=== PATIENT | male | born 2005 | race Caucasian/White ===

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

== ENCOUNTER 2024-07-11 16:01 | Emergency (ER) | payer OTHER, SELFPAY ==
[2024-07-11 16:15] VITALS: BP 124/83; PULSE 72; RESP 18; TEMP 36.8; O2SAT 98; BMI 25.8
--- NOTE | 2024-07-11 16:32 | EXP.UTC ---
Discharge Plan Disposition Patient Disposition: Home, Self-Care Condition: Good Referrals Follow up/Referrals: Angel Ring MD [Primary Care Provider] - See instructions Activity Restrictions/Add. Instructions Additional Instructions/Restrictions: He can continue to ice for the next 24 hours and then ice and heat whichever feels best. Return to the emergency department for worsening signs or symptoms including expanding bleeding. I have marked the borders of your hematoma. Clinical Impressions Clinical Impression: Hematoma Instructions Patient Instructions: DI for Hematoma (Bruise) Print Language Print Language: Upper Sorbian Discharge ED Provider: Mack Phoenix [facility] HPI General Chief complaint: PAIN Stated complaint: AO 07/10/240 Right hip injury Time Seen by Provider: 07/11/24 16:33 History of Present Illness Provider Complaint: Patient states that he was riding a bull last night and he was thrown off, landed on his left side and the bull came down and stepped on his right side states that initially the place started out small and he had some pain in his right hip/side area but since last night the bruising and swelling has progressively got worse States it is very sore in his side and the bruising is worse Related Data Allergies Allergy/AdvReac Type Severity Reaction Status Date / Time amoxicillin [AMOXICILLIN] Allergy Mild Verified 03/31/23 09:[address] [facility] Disclaimer: The information contained in this section may have been updated after the patient was seen, as this information can be updated by other users. Medical History Asthma Migraine Social History Smoking Status: Never smoker alcohol intake: never current occupational status: student and other Travel in the last 8 weeks: None household members: family housing: house ROS Obtained: Yes All systems reviewed & no additional complaints except as documented and Yes Systems reviewed as appropriate & no additional complaints except as documented Constitutional Constitutional: Reports system reviewed and no additional complaints, except as documented and Reports as per HPI Cardiovascular Cardiovascular: Reports system reviewed and no additional complaints, except as documented and Reports as per HPI Respiratory Respiratory: Reports system reviewed and no additional complaints, except as documented and Reports as per HPI Musculoskeletal Musculoskeletal: Reports system reviewed and no additional complaints, except as documented and Reports as per HPI Comments: area on right side/hip area where bull stomped on his after after falling off bull last night Physical Exam General General appearance: alert and in no apparent distress Respiratory Respiratory exam: Present normal lung sounds bilaterally; Absent respiratory distress or wheezes Cardiovascular Cardiovascular exam: Present regular rate, normal rhythm and normal heart sounds Abdominal Exam Comment: large hematoma noted on right side just above right iliac crest Expanded Lower Extremity Exam Right: Hip/Pelvis exam: Present other (large hematoma noted just above right iliac crest, reports got larger since last night and tender to touch) Upper leg exam: Present normal inspection Knee exam: Present normal inspection Lower leg exam: Present normal inspection Foot/toe exam: Present normal inspection Neurovascular/Tendon exam: Present normal capillary refill Gait: observed and normal Comment: patient has been ambulatory since Neurological Exam Neurological exam: Present alert, oriented X3 and normal gait Medical Decision Making Brett Inquiry Pt receiving controlled substance: No Brett was queried for this patient: No Lab Data 07/11/24 16:45 07/11/24 16:45 Medical Decision Narrative: Patient states he was thrown from bull last night and landed on his left side and the bull came down and stepped on his right side just above his hip area States he initially had pain in his hip but that has eased up some but has large hematoma on his right side just above his iliac crest that has continued to get worse and is uncomfortable so he came in, considering location of hematoma and mechanism of injury will transfer to the ED for further work up and evaluation and patient agreed Patient moved to room 10
--- NOTE | 2024-07-11 16:34 | PC.NURSE ---
PATIENT SENT TO ER PER Lois FARRAR APRN FOR FURTHER EVALUATION. REPORT GIVEN TO DR. ALDRIDEG BY Lois FARRAR APRN. PATIENT AMBULATED TO ER WITH [facility] STAFF ASSIST AT THIS TIME
[2024-07-11 16:39] VITALS: BP 157/97; PULSE 74; O2SAT 99
[2024-07-11 16:40] VITALS: BP 157/97; PULSE 73; RESP 20; TEMP 36.8; O2SAT 100; BMI 25.1
--- NOTE | 2024-07-11 16:44 | HMH.EDGENADL ---
Discharge Plan Disposition Patient Disposition: Home, Self-Care Condition: Good Referrals Follow up/Referrals: Angel Ring MD [Primary Care Provider] - See instructions Activity Restrictions/Add. Instructions Additional Instructions/Restrictions: He can continue to ice for the next 24 hours and then ice and heat whichever feels best. Return to the emergency department for worsening signs or symptoms including expanding bleeding. I have marked the borders of your hematoma. Clinical Impressions Clinical Impression: Hematoma Instructions Patient Instructions: DI for Hematoma (Bruise) Print Language Print Language: Czech Discharge ED Provider: Mack Phoenix General Adult HPI <UNA Gill - Last Filed: 07/11/24 19:28> General Chief complaint: PAIN Stated complaint: AO 07/10/24 2230 Right hip injury Time Seen by Provider: 07/11/24 16:33 Mode of Arrival: Ambulatory Source of Information: Patient Limitations: No Limitations Description of Symptoms (Recalled from ER Triage Doc. by RN): PATIENT STATES HE WAS BULL RIDING LAST NIGHT AND FEEL OFF OF THE BULL. HE REPORTS FALLING ONTO HIS LEFT SIDE AND THE BULL STEPPED ON HIS RIGHT HIP AREA. HE STATES THE BRUISING STARTED OUT SMALL AND HAS GOTTEN BIGGER EACH HOUR. SWELLING AND LARGE BRUISED AREA NOTED TO RIGHT SIDE/HIP AREA. History of Present Illness HPI narrative: Patient presents for evaluation to a hematoma of his right flank. 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 It is below the anterior superior iliac spine. However due to his area has significantly darkened and expanded since the accident about 1030 last night. He denies pain anywhere else including neck back chest belly. Related Data Allergies Allergy/AdvReac Type Severity Reaction Status Date / Time amoxicillin [AMOXICILLIN] Allergy Mild Verified 03/31/23 09:23 [facility] <UNA Gill - Last Filed: 07/11/24 19:28> [facility] Disclaimer: The information contained in this section may have been updated after the patient was seen, as this information can be updated by other users. Medical History Asthma Migraine Social History Smoking Status: Never smoker alcohol intake: never current occupational status: student and other Travel in the last 8 weeks: None household members: family housing: house <UNA Gill - Last Filed: 07/11/24 19:28> ROS Obtained: Yes Systems reviewed as appropriate & no additional complaints except as documented Physical Exam <UNA Gill - Last Filed: 07/11/24 19:28> General General appearance: alert and in no apparent distress Respiratory Respiratory exam: Present normal lung sounds bilaterally Cardiovascular Cardiovascular exam: Present regular rate and normal rhythm Abdominal Exam Abdominal exam: Present soft, guarding, rebound and normal bowel sounds; Absent tenderness Extremities Exam Extremities exam: Present normal inspection and full ROM Back Exam Back exam: Present normal inspection and full ROM Neurological Exam Neurological exam: Present alert and oriented X3 Expanded Skin Exam Body image: 1. 2. Numbers 1 and 2 are the same contiguous area of ecchymosis in the right flank Medical Decision Making <UNA Gill - Last Filed: 07/11/24 19:28> Brett Inquiry Pt receiving controlled substance: No Vital Signs: 07/11/24 16:15 07/11/24 16:39 07/11/24 16:40 Temperature 98.2 F 98.2 F Temperature Source Oral Oral Pulse Rate 74 Pulse Rate [Left Brachial] 72 73 Respiratory Rate 18 20 Blood Pressure 157/97 H Blood Pressure [Left Arm] 124/83 157/97 H Blood Pressure Mean Blood Pressure Mean [Left Arm] 96 117 Blood Pressure Source [Left Arm] Automatic Cuff Blood Pressure Position [Left Arm] Sitting 02 Sat by Pulse Oximetry 98 99 100 Oxygen Delivery Method Room Air 07/11/24 18:07 07/11/24 18:30 07/11/24 19:31 Temperature 97.9 F Temperature Source Oral Pulse Rate 60 66 Pulse Rate [Left Brachial] Respiratory Rate 16 Blood Pressure 119/81 123/79 130/78 Blood Pressure [Left Arm] Blood Pressure Mean 90 Blood Pressure Mean [Left Arm] Blood Pressure Source [Left Arm] Blood Pressure Position [Left Arm] 02 Sat by Pulse Oximetry 100 Oxygen Delivery Method Room Air Room Air Lab Data Lab Results 07/11/24 16:45: WBC 6.6, RBC 4.91, Hgb 14.4, Hct 44.6, MCV 90.9, MCH 29.4, MCHC 32.3, RDW 13.7, Plt Count 233, MPV 7.9, Neut % (Auto) 59.3, Lymph % (Auto) 28.3, [place]in[place] % (Auto) 9.0, Eos % (Auto) 2.5, Baso % (Auto) 1.0, Neut # (Auto) 3.9, Lymph # (Auto) 1.9, [place]in[place] # (Auto) 0.6, Eos # (Auto) 0.2, Baso # (Auto) 0.1, PT 11.0, INR 0.98, APTT 27.3, Sodium 141, Potassium 3.8, Chloride 106, Carbon Dioxide 28, Anion Gap 10.8, BUN 16, Creatinine 0.90, Estimated Creat Clear 152, Estimated GFR 109, Est GFR ( Amer) 132, Glucose 81, Calcium 9.0, Total Bilirubin 1.3, AST 35, ALT 32, Alkaline Phosphatase 112, Total Protein 7.9, Albumin 4.7, Globulin 3.2, Albumin/Globulin Ratio 1.5 07/11/24 16:45 07/11/24 16:45 Orders (Tests/Meds): ED MEDICATIONS Discontinued Medications Generic Name Dose Route Start Last Admin Trade Name Freq PRN Reason Stop Dose Admin Acetaminophen 1,000 mg 07/11/24 16:49 07/11/24 16:57 Acetaminophen 1,000mg/100ml Vial IV 07/11/24 16:50 1,000 mg ONCE ONE Administration Lactated Ringer's 1,000 mls @ 999 mls/hr 07/11/24 16:49 07/11/24 16:57 Lactated Ringer's 1000 Ml Bag IV 07/11/24 17:49 999 mls/hr .Q1H1M ONE Administration Iopamidol 80 ml 07/11/24 17:58 07/11/24 17:58 Iopamidol-370 (76%);100ml Bottle IV 07/11/24 17:59 80 ml ONCE ONE Administration Sodium Chloride 50 ml 07/11/24 17:58 07/11/24 17:58 0.9 % Sodium Chloride 50 Ml Vial IV 07/11/24 17:59 50 ml ONCE ONE Administration Sodium Chloride 10 ml 07/11/24 17:58 Sodium Chloride 0.9% 10ml Syr (Rad Only) IV 08/10/24 17:57 NEEDED PRN Maintain IV Site ORDERS Category Date Time Status CT angio abdomen pelvis Stat Cat Scan 07/11/24 16:49 Completed CBC w/Auto Diff [Complete Blood Count Auto Diff] Stat Lab 07/11/24 16:45 Completed CMP [Comprehensive Metabolic Panel] Stat Lab 07/11/24 16:45 Completed INR [Prothrombin Time INR] Stat Lab 07/11/24 16:45 Completed PTT [Activated Partial Thrombo Time] Stat Lab 07/11/24 16:45 Completed Medical Decision Narrative: In summary patient is a 18-year-old male who presents to the emergency department for evaluation of being stepped on by a bull with a hematoma in the right flank. Patient is hemodynamically stable upon arrival, afebrile. Physical exam shows a large ecchymotic area in the right flank. It actually stops at the level of his pants/waist. It is approximately 20 cm anterior posterior and about 12 cm superior-inferior. No bony deformities palpated and patient actually is only mildly uncomfortable to palpation. Differential diagnosis includes hematoma versus arterial bleed versus possible fracture. Initial workup will be conducted with hematologic labs CT scan abdomen pelvis. Initial interventions include Tylenol for now and fluid bolus. Initial workup reviewed by me is reassuring is his hematologic labs are nonactionable and my informal interpretation of his CT scan abdomen pelvis shows what appears to be a hematoma that has origins at the musculature of the right hip but no definitive extravasation of contrast is seen. Upon repeat evaluation patient's hematoma has not expanded beyond the boundaries that I marked on arrival with a permanent marker. Given this I had an interactive discussion with the patient regarding strict return precautions including expanding borders increasing pain at the site rapid increase in size etc. Patient verbalized understanding and agreement. Patient is appropriate for discharge with instructions for rest ice and compression is much as possible to facilitate symptom relief. <Mack Phoenix MD - Last Filed: 07/11/24 20:09> Vital Signs: 07/11/24 16:15 07/11/24 16:39 07/11/24 16:40 Temperature 98.2 F 98.2 F Temperature Source Oral Oral Pulse Rate 74 Pulse Rate [Left Brachial] 72 73 Respiratory Rate 18 20 Blood Pressure 157/97 H Blood Pressure [Left Arm] 124/83 157/97 H Blood Pressure Mean Blood Pressure Mean [Left Arm] 96 117 Blood Pressure Source [Left Arm] Automatic Cuff Blood Pressure Position [Left Arm] Sitting 02 Sat by Pulse Oximetry 98 99 100 Oxygen Delivery Method Room Air 07/11/24 18:07 07/11/24 18:30 07/11/24 19:31 Temperature 97.9 F Temperature Source Oral Pulse Rate 60 66 Pulse Rate [Left Brachial] Respiratory Rate 16 Blood Pressure 119/81 123/79 130/78 Blood Pressure [Left Arm] Blood Pressure Mean 90 Blood Pressure Mean [Left Arm] Blood Pressure Source [Left Arm] Blood Pressure Position [Left Arm] 02 Sat by Pulse Oximetry 100 Oxygen Delivery Method Room Air Room Air Lab Data Lab Results 07/11/24 16:45: WBC 6.6, RBC 4.91, Hgb 14.4, Hct 44.6, MCV 90.9, MCH 29.4, MCHC 32.3, RDW 13.7, Plt Count 233, MPV 7.9, Neut % (Auto) 59.3, Lymph % (Auto) 28.3, [place]in[place] % (Auto) 9.0, Eos % (Auto) 2.5, Baso % (Auto) 1.0, Neut # (Auto) 3.9, Lymph # (Auto) 1.9, [place]in[place] # (Auto) 0.6, Eos # (Auto) 0.2, Baso # (Auto) 0.1, PT 11.0, INR 0.98, APTT 27.3, Sodium 141, Potassium 3.8, Chloride 106, Carbon Dioxide 28, Anion Gap 10.8, BUN 16, Creatinine 0.90, Estimated Creat Clear 152, Estimated GFR 109, Est GFR ( Amer) 132, Glucose 81, Calcium 9.0, Total Bilirubin 1.3, AST 35, ALT 32, Alkaline Phosphatase 112, Total Protein 7.9, Albumin 4.7, Globulin 3.2, Albumin/Globulin Ratio 1.5 Orders (Tests/Meds): ED MEDICATIONS Discontinued Medications Generic Name Dose Route Start Last Admin Trade Name Freq PRN Reason Stop Dose Admin Acetaminophen 1,000 mg 07/11/24 16:49 07/11/24 16:57 Acetaminophen 1,000mg/100ml Vial IV 07/11/24 16:50 1,000 mg ONCE ONE Administration Lactated Ringer's 1,000 mls @ 999 mls/hr 07/11/24 16:49 07/11/24 16:57 Lactated Ringer's 1000 Ml Bag IV 07/11/24 17:49 999 mls/hr .Q1H1M ONE Administration Iopamidol 80 ml 07/11/24 17:58 07/11/24 17:58 Iopamidol-370 (76%);100ml Bottle IV 07/11/24 17:59 80 ml ONCE ONE Administration Sodium Chloride 50 ml 07/11/24 17:58 07/11/24 17:58 0.9 % Sodium Chloride 50 Ml Vial IV 07/11/24 17:59 50 ml ONCE ONE Administration Sodium Chloride 10 ml 07/11/24 17:58 Sodium Chloride 0.9% 10ml Syr (Rad Only) IV 08/10/24 17:57 NEEDED PRN Maintain IV Site ORDERS Category Date Time Status CT angio abdomen pelvis Stat Cat Scan 07/11/24 16:49 Completed CBC w/Auto Diff [Complete Blood Count Auto Diff] Stat Lab 07/11/24 16:45 Completed CMP [Comprehensive Metabolic Panel] Stat Lab 07/11/24 16:45 Completed INR [Prothrombin Time INR] Stat Lab 07/11/24 16:45 Completed PTT [Activated Partial Thrombo Time] Stat Lab 07/11/24 16:45 Completed Medical Decision Narrative: In summary patient is a 18-year-old male who presents to the emergency department for evaluation of being stepped on by a bull with a hematoma in the right flank. Patient is hemodynamically stable upon arrival, afebrile. Physical exam shows a large ecchymotic area in the right flank. It actually stops at the level of his pants/waist. It is approximately 20 cm anterior posterior and about 12 cm superior-inferior. No bony deformities palpated and patient actually is only mildly uncomfortable to palpation. Differential diagnosis includes hematoma versus arterial bleed versus possible fracture. Initial workup will be conducted with hematologic labs CT scan abdomen pelvis. Initial interventions include Tylenol for now and fluid bolus. Initial workup reviewed by me is reassuring is his hematologic labs are nonactionable and my informal interpretation of his CT scan abdomen pelvis shows what appears to be a hematoma that has origins at the musculature of the right hip but no definitive extravasation of contrast is seen. Upon repeat evaluation patient's hematoma has not expanded beyond the boundaries that I marked on arrival with a permanent marker. Given this I had an interactive discussion with the patient regarding strict return precautions including expanding borders increasing pain at the site rapid increase in size etc. Patient verbalized understanding and agreement. Patient is appropriate for discharge with instructions for rest ice and compression is much as possible to facilitate symptom relief. Alban: I assumed primary responsibility for this patient after signout from previous physician. I independently interviewed and evaluated patient. Right flank hematoma. Moderately tender. No pulsatile bruit, not actively expanding visibly. I was consulted by the FRANCO, and we discussed the complexity of the problems being addressed. I approved the treatment and management plan for this patient's care in the Emergency Department, thus performing a substantive portion of the medical decision making. Mack Phoenix MD Critical Care <UNA Gill - Last Filed: 07/11/24 19:28> Critical Care Time Critical Care Time: No
--- NOTE | 2024-07-11 16:49 | CT_ITS ---
PROCEDURE INFORMATION: Exam: CTA Abdomen and Pelvis With Contrast Exam date and time: 07/11/2024 5:57 PM Age: 18 years old Clinical indication: Abdominal pain; Flank; Other: Right; Additional info: Expanding hematoma right flank, stepped on by a bu TECHNIQUE: Imaging protocol: Computed tomographic angiography of the abdomen and pelvis with contrast. Exam focused on the arteries. 3D rendering (Not supervised by radiologist): MIP and/or 3D reconstructed images were created by the technologist. Radiation optimization: All CT scans at this facility use at least one of these dose optimization techniques: automated exposure control; mA and/or kV adjustment per patient size (includes targeted exams where dose is matched to clinical indication); or iterative reconstruction. Contrast material: ISOVUE; Contrast volume: 80 ml; Contrast route: INTRAVENOUS (IV); COMPARISON: CT ABDOMEN PELVIS W CON 05/19/2020 1:01 AM FINDINGS: Aorta: No aortic aneurysm. No aortic dissection. Celiac trunk and mesenteric arteries: No occlusion or significant stenosis. Renal arteries: No occlusion or significant stenosis. Right iliac arteries: No occlusion or significant stenosis. Left iliac arteries: No occlusion or significant stenosis. Liver: No mass. Gallbladder and biliary ducts: Unremarkable. No calcified stones. No ductal dilation. Pancreas: Unremarkable. No mass. No ductal dilation. Spleen: Unremarkable. No splenomegaly. Adrenal glands: Unremarkable. No mass. Kidneys and ureters: Unremarkable. No solid mass. No hydronephrosis. Stomach and bowel: Unremarkable. No obstruction. No mucosal thickening. Appendix: No evidence of appendicitis. Intraperitoneal space: Unremarkable. No free air. No significant fluid collection. Lymph nodes: Unremarkable. No enlarged lymph nodes. Urinary bladder: Unremarkable. No mass. Reproductive: Unremarkable as visualized. Bones/joints: No acute fracture. Soft tissues: Right flank soft tissue opacities compatible with hematomas that involves the fascia of the gluteus medialis with this component measuring 4.8 x 4.2 x 1.9 cm. Majority of the hematoma is within the subcutaneous fat. IMPRESSION: Right flank soft tissue opacities compatible with hematomas that involves the fascia of the gluteus medialis with this component measuring 4.8 x 4.2 x 1.9 cm. Majority of the hematoma is within the subcutaneous fat.
[2024-07-11] MEDS: ACETAMINOPHEN 1,000MG/100ML VIAL 1000 MG IV (16:57)
[2024-07-11] MEDS: LACTATED RINGERS 1000ML 1,000 ML 999 ML IV (16:57)
[2024-07-11 16:58] LABS: Albumin Level 4.7 g/dl (3.5-5.0); Chloride 106 mmol/L (98-107)
[2024-07-11 16:59] LABS: Potassium 3.8 mmoL/L (3.5-5.1); Sodium 141 mmol/L (136-145)
[2024-07-11 17:01] LABS: Alanine Aminotransferase 32 U/L (12-78); Anion Gap 10.8 mEq/L (5-15); Aspartate Amino Transferase 35 U/L (17-59); Blood Urea Nitrogen 16 mg/dl (9-20); Carbon Dioxide 28 mmol/L (22.0-30.0); Creatinine Clearance Estimated 152 mL/min (50-200); Estimated Glomerular Filt Rate 109 ml/min (>60); GFR (African American) 132 ML/MIN (>60)
[2024-07-11 17:02] LABS: Albumin/Globulin Ratio 1.5 (1.1-1.8); Alkaline Phosphatase 112 U/L (38-126); Bilirubin,Total 1.3 mg/dl (0.2-1.3); Globulin 3.2 g/dL (1.3-3.2); Glucose 81 mg/dl (74-100); Total Protein,Serum 7.9 g/dl (6.3-8.2)
[2024-07-11 17:08] LABS: Activated Partial Thrombo Time 27.3 seconds (22.8-30.6); INR 0.98 (0.9-1.1)
[2024-07-11 17:22] LABS: Basophils # 0.1 K/mm3 (0-0.2); Eosinophils # 0.2 K/mm3 (0.0-0.4); Eosinophils % 2.5 % (0.1-12.0); Hematocrit 44.6 % (42.0-52.0); Hemoglobin 14.4 g/dL (14.1-18.0); Lymphocytes # 1.9 K/mm3 (0.7-4.5); Lymphocytes % 28.3 % (10-50); Mean Corpuscular HGB Conc 32.3 g/dL (31.8-35.4); Mean Corpuscular Hemoglobin 29.4 pg (27.0-31.2); Mean Corpuscular Volume 90.9 fl (80-94); Mean Platelet Volume 7.9 fl (7.4-10.4); Monocytes # 0.6 K/mm3 (0.1-1.0); Neutrophils # 3.9 K/mm3 (1.8-7.8); Neutrophils % 59.3 % (37.0-80.0); Platelet Count 233 K/mm3 (142-424); Red Blood Count 4.91 M/mm3 (4.60-6.20); Red Cell Distribution Width 13.7 % (11.5-17.5); White Blood Count 6.6 K/mm3 (4.5-13.0)
--- NOTE | 2024-07-11 17:54 | PC.NURSE ---
Pt ambulatory to RAD
[2024-07-11] MEDS: IOPAMIDOL-370 (76%);100ML BOTTLE 80 ML IV (17:58)
[2024-07-11] MEDS: 0.9 % SODIUM CHLORIDE 50 ML VIAL IV (17:58)
--- NOTE | 2024-07-11 18:01 | PC.NURSE ---
Pt returned from RAD
[2024-07-11 18:07] VITALS: BP 119/81
[2024-07-11 18:30] VITALS: BP 123/79; PULSE 60; O2SAT 100
[2024-07-11 19:31] VITALS: BP 130/78; PULSE 66; RESP 16; TEMP 36.6; O2SAT 100
== END 2024-07-11 19:36 | disposition home or self-care (01) ==
LOC: UTC 16:03 → ER 16:34
PROVIDERS: Physician Assistant; Emergency Provider Emergency Medicine; PCP Internal Medicine Adolescent Medicine
DX: M25.551 Pain in right hip (principal); S70.01XA Contusion of right hip, initial encounter; R10.31 Right lower quadrant pain; W55.22XA Struck by cow, initial encounter
CPT/HCPCS: 74174; 80053; 85025; 85610; 85730; 96361; 96374; 99284; J0131; J7120; Q9967

== ENCOUNTER 2024-07-11 22:24 | Emergency (ER) | payer OTHER, SELFPAY ==
[2024-07-11 22:26] VITALS: BP 158/92; PULSE 74; RESP 16; TEMP 36.8; O2SAT 100; BMI 25.1
--- NOTE | 2024-07-11 22:35 | ED_ITS ---
Discharge Plan Disposition Patient Disposition: Home, Self-Care Condition: Good Referrals Follow up/Referrals: Angel Ring MD [Primary Care Provider] - See instructions Activity Restrictions/Add. Instructions Additional Instructions/Restrictions: Return to the emergency department for any expansion of the hematoma beyond the borders that are currently marked. Return if the size suddenly increases. Wear Yaya wrap compression and ice. Follow-up with your PCP in 48 hours for recheck. Clinical Impressions Clinical Impression: Subcutaneous hematoma Print Language Print Language: Sierra Leonean Discharge ED Provider: aMck Phoenix General Adult HPI <UNA Gill - Last Filed: 07/11/24 22:49> General Chief complaint: Recheck/Abnormal Lab/Rx Stated complaint: swelling around hip area Time Seen by Provider: 07/11/24 22:35 History of Present Illness HPI narrative: Patient presents for reevaluation of his hematoma. Patient states that he thought it was getting larger outside of the marked borders that I placed on his arrival earlier this date. He also feels like it might be getting larger in size. He has still has no increasing pain. Related Data Allergies Allergy/AdvReac Type Severity Reaction Status Date / Time amoxicillin [AMOXICILLIN] Allergy Mild Verified 03/31/23 09:23 PFSH <UNA Gill - Last Filed: 07/11/24 22:49> [facility]LY [facility] Disclaimer: The information contained in this section may have been updated after the patient was seen, as this information can be updated by other users. Medical History Asthma Migraine Social History Smoking Status: Never smoker alcohol intake: never current occupational status: student and other Travel in the last 8 weeks: None household members: family housing: house <UNA Gill - Last Filed: 07/11/24 22:49> ROS Obtained: Yes Systems reviewed as appropriate & no additional complaints except as documented Physical Exam <UNA Gill - Last Filed: 07/11/24 22:49> General General appearance: alert and in no apparent distress Respiratory Respiratory exam: Present normal lung sounds bilaterally Cardiovascular Cardiovascular exam: Present regular rate and normal rhythm Neurological Exam Neurological exam: Present alert and oriented X3 Medical Decision Making <UNA Gill - Last Filed: 07/11/24 22:49> Medical Records Medical records reviewed: Yes I reviewed the patient's medical records. Brett Inquiry Pt receiving controlled substance: No Vital Signs: 07/11/24 22:26 07/11/24 23:02 07/11/24 23:03 Temperature 98.2 F 98.2 F 98.2 F Temperature Source Oral Oral Pulse Rate 74 Pulse Rate [Right] 74 74 Respiratory Rate 16 20 20 Blood Pressure 138/88 Blood Pressure [Right Arm] 158/92 H 158/92 H Blood Pressure Mean [Right Arm] 114 114 02 Sat by Pulse Oximetry 100 100 Oxygen Delivery Method Room Air Lab Data Lab results reviewed: Yes I reviewed the patient's lab results. Medical Decision Narrative: In summary patient is a 18-year-old male who presents to the emergency department for evaluation of traumatic hematoma. Patient is hemodynamically stable upon arrival, afebrile. Physical exam shows that the area of ecchymosis is still within the borders that marked on his arrival at the previous visit earlier this date. He has some streakiness in in the posterior flank that I did not include in the large border as they were very streaky and minimal in size. Differential diagnosis includes expanding hematoma versus normal sequela of traumatic hematoma. Previous workup showed he was hemodynamically stable with good coagulation and CT scan via my informal to rotation showed subcutaneous fat hematomas and involving the gluteus medialis muscle failure. Patient reiterated turns for strict return and reassured that it is not expanding beyond the borders and there would likely be some more puffiness. However if it expands outside the borders rapidly He is to return to the emergency department immediately. <Mack Phoenix MD - Last Filed: 07/11/24 23:14> Vital Signs: 07/11/24 22:26 07/11/24 23:02 07/11/24 23:03 Temperature 98.2 F 98.2 F 98.2 F Temperature Source Oral Oral Pulse Rate 74 Pulse Rate [Right] 74 74 Respiratory Rate 16 20 20 Blood Pressure 138/88 Blood Pressure [Right Arm] 158/92 H 158/92 H Blood Pressure Mean [Right Arm] 114 114 02 Sat by Pulse Oximetry 100 100 Oxygen Delivery Method Room Air Medical Decision Narrative: In summary patient is a 18-year-old male who presents to the emergency department for evaluation of traumatic hematoma. Patient is hemodynamically stable upon arrival, afebrile. Physical exam shows that the area of ecchymosis is still within the borders that marked on his arrival at the previous visit earlier this date. He has some streakiness in in the posterior flank that I did not include in the large border as they were very streaky and minimal in size. Differential diagnosis includes expanding hematoma versus normal sequela of traumatic hematoma. Previous workup showed he was hemodynamically stable with good coagulation and CT scan via my informal to rotation showed subcutaneous fat hematomas and involving the gluteus medialis muscle failure. Patient reiterated turns for strict return and reassured that it is not expanding beyond the borders and there would likely be some more puffiness. However if it expands outside the borders rapidly He is to return to the emergency department immediately. I was consulted by the FRANCO, and we discussed the complexity of the problems being addressed. I approved the treatment and management plan for this patient's care in the Emergency Department, thus performing a substantive portion of the medical decision making. Mack Phoenix MD Critical Care <UNA Gill - Last Filed: 07/11/24 22:49> Critical Care Time Critical Care Time: No
[2024-07-11 23:02] VITALS: BP 158/92; PULSE 74; RESP 20; TEMP 36.8; O2SAT 100
[2024-07-11 23:03] VITALS: BP 138/88; PULSE 74; RESP 20; TEMP 36.8
== END 2024-07-11 23:04 | disposition home or self-care (01) ==
PROVIDERS: Emergency Provider Emergency Medicine; PCP Internal Medicine Adolescent Medicine
DX: S70.01XA Contusion of right hip, initial encounter; M25.551 Pain in right hip; R10.31 Right lower quadrant pain; W55.22XA Struck by cow, initial encounter
CPT/HCPCS: 99282

== ENCOUNTER 2024-10-14 15:15 | Emergency (ER) | payer OTHER, SELFPAY ==
[2024-10-14 15:45] VITALS: BP 134/79; PULSE 70; RESP 16; TEMP 36.9; O2SAT 99; BMI 25.0
[2024-10-14 15:52] LABS: UTC Strep Screen (Rapid) Negative (Negative)
--- NOTE | 2024-10-14 16:20 | EXP.UTC ---
Discharge Plan Disposition Patient Disposition: Home, Self-Care Condition: Good Prescriptions Prescriptions: New clindamycin HCl 300 mg capsule 300 mg PO Q8H Qty: 30 0RF methylprednisolone 4 mg Tablets,Dose Pack 4 mg PO DIRECTED 6 Days Qty: 21 0RF Rx Instructions: Take 1 pack as directed for 6 days [id number]-[id number]-GX [Bromfed DM] 2-30-10 mg/5 mL Syrup 5 ml PO Q6H PRN (Reason: Cough) Qty: 240 0RF Referrals Follow up/Referrals: Angel Ring MD [Primary Care Provider] - See instructions Activity Restrictions/Add. Instructions Additional Instructions/Restrictions: Drink plenty of fluids. Take tylenol or ibuprofen for pain or fever. Take the medications as directed. Follow up with your regular doctor. GO TO THE ER FOR ANY WORSENING SYMPTOMS Don't start the oral steroids (medrol dose pack) until tomorrow since you had the shot here Clinical Impressions Clinical Impression: Pharyngitis Stand Alone Forms Stand Alone Forms: Work/School Release Instructions Patient Instructions: Sore Throat, DI for Pharyngitis/Tonsillopharyngitis -- Adult, Dexamethasone Injection Print Language Print Language: Jamaican Discharge ED Provider: Speedy Murrieta [facility] General Stated complaint: sore throat,blisters in throat Mode of Arrival: Ambulatory Source of Information: Patient Limitations: No Limitations Time Seen by Provider: 10/14/24 15:54 Description of Symptoms (Recalled from Triage Doc. by RN): PATIENT C/O SORE THROAT AND COUGH X 1 WEEK HEENT Symptoms (Recalled from RN notes): Yes Resp Symptoms (Recalled from RN notes): Yes Skin Symptoms (Recalled from RN notes): No MS Symptoms (Recalled from RN notes): No Functional Status (Recalled from RN notes): WNL Related Data Previous Rx's ?Medication ?Instructions ?Recorded jkhkgokusflvazw-xmrdmdcwspaunxj-SA 5 ml PO Q6H PRN Cough #240 mL 10/14/24 2 mg-30 mg-10 mg/5 mL oral syrup (Bromfed DM) clindamycin HCl 300 mg capsule 300 mg PO Q8H #30 caps 10/14/24 methylprednisolone 4 mg tablets in 4 mg PO DIRECTED 6 days #21 tabs 10/14/24 a dose pack Allergies Allergy/AdvReac Type Severity Reaction Status Date / Time amoxicillin (AMOXICILLIN) Allergy Mild Verified 03/31/23 09:23 Worker's Comp Is this a Worker's Comp case?: No [facility] Disclaimer: The information contained in this section may have been updated after the patient was seen, as this information can be updated by other users. Medical History Asthma Migraine Social History Smoking Status: Never smoker alcohol intake: never current occupational status: student and other household members: family housing: house ROS Obtained: Yes All systems reviewed & no additional complaints except as documented Constitutional Constitutional: Reports chills and Reports fever(s) Eyes Eyes: Denies eye discharge ENT Ears, Nose, Mouth, and Throat: Reports as per HPI Cardiovascular Cardiovascular: Denies chest pain Respiratory Respiratory: Denies chest congestion and Reports cough Gastrointestinal Gastrointestingal: Reports nausea; Denies abdominal pain, constipation, cramping, diarrhea or vomiting Musculoskeletal Musculoskeletal: Denies arthralgias Integumentary/Breasts Skin/Breast: Denies rash Neurologic Neurologic: Denies paresthesias Physical Exam General General appearance: alert and in no apparent distress Head Head exam: atraumatic, normocephalic and normal inspection Eye Eye exam: Present normal appearance, PERRL and EOMI ENT ENT exam: Present mucous membranes moist and normal external ear exam Expanded ENT Exam TM/Canal exam: Bilateral TM: erythema and bulging Nose exam: Absent sinus tenderness Mouth exam: Present normal external inspection; Absent drooling Teeth exam: Present normal inspection Throat exam: Present tonsillar erythema, tonsillomegaly and tonsillar exudate Neck Neck exam: Present normal inspection, full ROM and trachea midline; Absent tenderness, meningismus or lymphadenopathy Chest Chest inspection: Present normal inspection and symmetric chest wall rise; Absent tenderness Respiratory Respiratory exam: Present normal lung sounds bilaterally; Absent respiratory distress, wheezes, stridor or accessory muscle use Cardiovascular Cardiovascular exam: Present regular rate and normal rhythm; Absent systolic murmur or diastolic murmur Abdominal Exam Abdominal exam: Present soft and normal bowel sounds; Absent distention, tenderness, guarding, rebound or rigidity Extremities Exam Extremities exam: Present normal inspection and normal capillary refill; Absent calf tenderness Back Exam Back exam: Present normal inspection and full ROM; Absent tenderness, CVA tenderness (R) or CVA tenderness (L) Neurological Exam Neurological exam: Present alert, oriented X3 and CN II-XII intact Psychiatric Psychiatric exam: Present normal affect and normal mood Skin Skin exam: Present warm, dry, intact and normal color Medical Decision Making Medical Records Medical records reviewed: No I reviewed the patient's medical records. Screening: Per USPSTF and CDC recommendations, given the prevalence of disease in our region, it is our hospital?s policy to screen for HIV and viral Hepatitis for all patients aged 18 and over and those with ongoing risk factors. Brett Inquiry Pt receiving controlled substance: No Vital Signs: 10/14/24 15:45 Temperature 98.4 F Temperature Source Oral Pulse Rate [Left Brachial] 70 Respiratory Rate 16 Blood Pressure [Left Arm] 134/79 Blood Pressure Mean [Left Arm] 97 Blood Pressure Source [Left Arm] Automatic Cuff Blood Pressure Position [Left Arm] Sitting 02 Sat by Pulse Oximetry 99 Oxygen Delivery Method Room Air Lab Data Lab results reviewed: Yes I reviewed the patient's lab results. Lab Results 10/14/24 15:44: Strep Scn Rapid Clinic Negative Orders (Tests/Meds): ORDERS Category Date Time Status Strep Screen Confirmation Stat Micro 10/14/24 15:44 Received
[2024-10-14] MEDS: DEXAMETHASONE 4MG/ML 1ML VIAL 8 MG IM (16:50)
[2024-10-14 17:01] VITALS: BP 134/79; PULSE 70; RESP 16; TEMP 36.9; O2SAT 99
== END 2024-10-14 17:03 | disposition home or self-care (01) ==
PROVIDERS: Emergency Provider Nurse Practitioner Family; PCP Internal Medicine Adolescent Medicine
DX: J02.9 Acute pharyngitis, unspecified (principal)
CPT/HCPCS: 87880; 96372; 99213; G0381; J1100

== ENCOUNTER 2025-06-01 09:18 | Outpatient (CLI) | payer OTHER, SELFPAY ==
--- NOTE | 2025-06-01 09:19 | XR_ITS ---
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 There is no acute fracture or dislocation. Visualized joint spaces are normally aligned. Soft tissues are unremarkable. IMPRESSION: No acute bony abnormality. Reviewed, Interpreted and Dictated by Nima Mendoza MD Transcribed by Maile Giraldo Authenticated and [facility]
--- OUTSIDE RECORDS SUMMARY | 2025-06-01 09:21 | XMS_ITS | Encounter Summary ---
Author Organization [employer] ([place], [place], [place], [place]) Address [address] [place] [address] Care Team Providers Care Respiratory Tech Name Role Phone Unavailable Primary Care Provider Unavailabl e Encounter Details Date Type Department Care Team (Late st Contact Info) Description 06/24/2019 Transcribed Document [facility] [place] Family Medicine [address] [place] [address] ProviderIman MD [address] [place] [address] Social History Tobacco Use Types Packs/Day Years Used Date Smoking Tobacco: Never Assessed Sex and Gender Information Value Date Recorded Sex Assigned at Male 05/21/2022 8:34 PM CDT Legal Sex Male 8:34 PM CDT Gender Identity Male 05/21/2022 8:34 PM CDT Sexual Orientation Not on file documented as of this encounter Miscellaneous Notes * Cerner Conversion Note - Historical ProviderMD - 06/24/2019 12:53 AM CDT documented in this encounter Plan of Treatment Not on file documented as of this encounter Visit Diagnoses Not on filedocumented in this encounter
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
--- OUTSIDE RECORDS SUMMARY | 2025-06-01 09:21 | XMS_ITS | Clinical Summary ---
Author Organization [employer] ([place], [place], [place], [place]) Address [address] [place] [address] Care Team Providers Care Crane Operator Cab Name Role Phone Unavailable Primary Care Provider Unavailabl e Social History Tobacco Use Types Packs/Day Years Used Date Smoking Tobacco: Never Assessed Sex and Gender Information Value Date Recorded Sex Assigned at Male 05/21/2022 8:34 PM CDT Legal Sex Male 8:34 PM CDT Gender Identity Male 05/21/2022 8:34 PM CDT Sexual Orientation Not on file Plan of Treatment Not on file
--- OUTSIDE RECORDS SUMMARY | 2025-06-01 09:21 | XMS_ITS | Referral Summary ---
Author Organization [employer] ([place], [place], [place], [place]) Address [address] [place] [address] Care Team Providers Care Curbstone Setter Name Role Phone Unavailable Primary Care Provider [...]
--- OUTSIDE RECORDS SUMMARY | 2025-06-01 09:21 | XMS_ITS | Encounter Summary ---
Author Organization [employer] ([place], [place], [place], [place]) Address [address] [place] [address] Care Team Providers Care Behavioral Health Counselor Name Role Phone Unavailable Primary Care Provider Unavailabl e Encounter Details Date Type Department Care Team (Late st Contact Info) Description 06/23/2019 Transcribed Document [facility] [place] [address] [place] [address] ProviderIman MD [address] [place] [address] Social History Tobacco Use Types Packs/Day Years Used Date Smoking Tobacco: Never Assessed Sex and Gender Information Value Date Recorded Sex Assigned at Male 05/21/2022 8:34 PM CDT Legal Sex Male 8:34 PM CDT Gender Identity Male 05/21/2022 8:34 PM CDT Sexual Orientation Not on file documented as of this encounter Miscellaneous Notes * Cerner Conversion Note - Iman ProviderMD - 06/23/2019 10:50 PM CDT ED Assessment Entered On: 06/23/2019 23:21 EDT Performed On: 06/23/2019 23:21 EDT by CRUZITO STOKES RN-CHARGE ED Quick Look Assessment Level of Consciousness : Alert, Awake Affect/Behavior : Appropriate, Calm, Cooperative Orientation : Oriented x 4 Skin Temperature : Warm Skin Description : Dry CRUZITO STOKES RN-CHARGE - 06/23/2019 23:21 EDT ED General-Functional Assess Communication Barrier : None Primary Language : German Any Spiritual/Cultural Needs or Requests : No Currently in Unsafe Situation : No CRUZITO STOKES RN-CHARGE - 06/23/2019 23:21 EDT Social Habits Smoking Status : Never (less than 100 in lifetime; none in last 30 days) Smokeless Tobacco Status : Never Desires Tobacco Cessation Calc : 0 CRUZITO STOKES RN-CHARGE - 06/23/2019 23:21 EDT Social History (As Of: 06/23/2019 23:21:46 EDT) Tobacco: Never (less than 100 in lifetime) Smoking Status. (Last Updated: 06/23/2019 23:03:04 EDT by CRUZITO STOKES, RN-CHARGE) Alcohol: Alcohol Use History No. (Last Updated: 06/23/2019 23:03:04 EDT by CRUZITO STOKES, RN-CHARGE) Substance Abuse: Drug Use Hx: No. Use in Last 12 Months: No. (Last Updated: 06/23/2019 23:03:04 EDT by CRUZITO STOKES, RN-CHARGE) documented in this encounter Plan of Treatment Not on file documented as of this encounter Visit Diagnoses Not on filedocumented in this encounter
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
--- OUTSIDE RECORDS SUMMARY | 2025-06-01 09:21 | XMS_ITS | Encounter Summary ---
Author Organization [employer] ([place], [place], [place], [place]) Address [address] [place] [address] Care Team Providers Care Bulb Tester Name Role Phone Unavailable Primary Care Provider Unavailabl e Encounter Details Date Type Department Care Team (Late st Contact Info) Description 06/24/2019 Transcribed Document [facility] [place] Family Medicine [address] [place] [address] ProviderIman MD [facility] [place] [address] Social History Tobacco Use Types Packs/Day Years Used Date Smoking Tobacco: Never Assessed Sex and Gender Information Value Date Recorded Sex Assigned at Male 05/21/2022 8:34 PM CDT Legal Sex Male 8:34 PM CDT Gender Identity Male 05/21/2022 8:34 PM CDT Sexual Orientation Not on file documented as of this encounter Miscellaneous Notes * Cerner Conversion Note - Iman ProviderMD - 06/24/2019 1:03 AM CDT ED Discharge Entered On: 06/24/2019 1:03 EDT Performed On: 06/24/2019 1:03 EDT by CRUZITO STOKES RN-CHARGE Discharge Process Patient Disposition : Discharge Personal Belongings With Patient : Yes Patient Education Completed : Yes Teaching Evaluation : Verbalizes understanding Link to Valuables and Belongings form : No IV Discontinued : Not applicable Nursing Documentation Completed : Yes CRUZITO STOKES RN-CHARGE - 06/24/2019 1:03 EDT ED Discharge Discharge To : Home with ambulatory/outpatient follow-up Name of Receiving Facility/Provider : PCP Mode Of Departure : Ambulatory Accompanied By : Mother Discharge Instructions Reviewed With, Opportunity For Questions Given : Patient, Mother Prescriptions Given to Patient : No Medications Given to Patient : No CRUZITO STOKES RN-CHARGE - 06/24/2019 1:03 EDT documented in this encounter Plan of Treatment Not on file documented as of this encounter Visit Diagnoses Not on filedocumented in this encounter
--- OUTSIDE RECORDS SUMMARY | 2025-06-01 09:21 | XMS_ITS | Encounter Summary ---
Author Organization [employer] ([place], [place], [place], [place]) Address [address] [place] [address] Care Team Providers Care Manager Critical Care Unit Name Role Phone Unavailable Primary Care Provider Unavailabl e Encounter Details Date Type Department Care Team (Late st Contact Info) Description 06/24/2019 Transcribed Document [facility] [place] [address] [place] [address] ProviderIman MD [address] [place] [address] Social History Tobacco Use Types [...] Note - Iman Crisostomo MD - 06/24/2019 12:59 AM CDT [place] [address] TYRONE RYAN :2005 Visit Time:06/23/2019 Your Visit Summary Your Care Team Admitting Physician - ELISEO ABDALLA MD PHY, UNKNOWN Attending Physician - ELISEO ABDALLA MD Primary Care Physician - ELISA, UNKNOWN Referring Physician - ELISEO ABDALLA MD Your Diagnosis Jaw pain Pain in lower jaw Medical Information You may obtain a copy of your Emergency Department visit from Medical Records by calling the hospital phone number listed above and asking to be directed to the Medical Records Department. If you had special tests, such as EKG???s or X-rays, the interpretation of your tests given to you by the Emergency Department Physician is a preliminary report. Some fractures and illnesses fail to show up on preliminary tests. These will be reviewed again and we will call you if there are any new suggestions. If your symptoms continue notify your physician. After you leave, you should follow the instructions provided. What to do next Follow-Up Appointments Follow Up with [facility] (Find a Doc) When Within 2 to 3 days Where: [place] [address]- Business (1) Follow Up with UNKNOWN PHY When Within 2 to 3 days Allergies amoxicillin Immunizations This Visit No Immunizations Found Medications The home medications listed are only as accurate as the information you provided. Please continue taking all of your medications prescribed by your Primary Care Provider unless specifically told to change or discontinue the medication. Please direct any questions regarding your home medications to your Primary Care Provider. Take your medications faithfully. Do NOT skip medication. Do NOT stop taking medications without the direction of a physician. Carry a list of your medications with you at all times, and take this medication list with you to your first follow up visit. Report any side effects. Avoid herbal remedies unless discussed with your physician. As part of your treatment plan, your physician may have prescribed a limited course of a controlled substance. This medication may be given to help people with moderate or severe pain or for other medical conditions, but there are risks involved with treatment. Common side effects may include nausea, constipation, drowsiness, sweating, itching, dry mouth, and rash. More serious side effects may include cognitive and motor impairment, like problems with thinking, concentrating, alertness, and movement (e.g. slowed reflexes), and driving and operating heavy machinery can be dangerous. It is important for you to talk to your physician if you have these side effects or questions. These controlled substances can produce physical dependence and be habit-forming if taken for an extended period of time, which means that the body has gotten used to them and may experience withdrawal symptoms if they are abruptly stopped. Withdrawal symptoms can include runny nose, sweating, goose bumps, diarrhea, abdominal cramping, rapid heartbeat, difficulty sleeping, and nervousness. Please dispose of unused and medications per pharmacy guidance. Test Results Laboratory or Other Results This Visit (last charted value for your 06/23/2019 visit) No Laboratory or Other Results This Visit Education Materials Jaw Contusion A jaw contusion is a deep bruise of the jaw. Contusions are the result of an injury to muscles and tissue under the skin, which causes bleeding under the skin. The contusion may turn blue, purple, or yellow. Minor injuries will cause a painless contusion, but more severe contusions may stay painful and swollen for a few weeks. What are the causes? This condition is usually caused by trauma, direct force, or a hard hit (blow) to the jaw. What are the signs or symptoms? Symptoms of this condition include: ??? Jaw pain. ??? Jaw swelling. ??? Jaw bruising, redness, or discoloration. ??? Jaw tenderness or soreness. How is this diagnosed? This condition is diagnosed with a medical history and a physical exam. An X-ray, CT scan, or MRI may be needed to determine if there were any associated injuries, such as broken bones (fractures). How is this treated? Often, the best treatment for this condition is applying cold compresses to the injured area and eating a soft diet. Xzeh-mkf-oafivqu medicines may also be recommended for pain control. Follow these instructions at home: Diet ??? Eat soft foods as told by your health care provider. Soft foods include baby food, gelatin, oatmeal, ice cream, applesauce, bananas, eggs, pasta, cottage cheese, soups, and yogurt. ??? Cut food into smaller pieces. This makes it easier to chew. ??? Avoid chewing gum or ice. General instructions ??? If directed, apply ice to the injured area: ? Put ice in a plastic bag. ? Place a towel between your skin and the bag. ? Leave the ice on for 20 minutes, 2???3 times per day. ??? Take fblx-hym-lxccbcm and prescription medicines only as told by your health care provider. ??? Avoid opening your mouth widely. This includes opening your mouth to eat large pieces of food or to yawn, scream, yell, or sing. ??? Keep all follow-up visits as told by your health care provider. This is important. Contact a health care provider if: ??? Your pain is not controlled with medicine. ??? Your symptoms do not improve with treatment or they get worse. ??? You have new symptoms. Get help right away if: ??? You have any new cracking or clicking in your jaw. ??? You have trouble eating or you cannot eat. This information is not intended to replace advice given to you by your health care provider. Make sure you discuss any questions you have with your health care provider. Document Released: 01/30/2005 Document Revised: 04/17/2017 Document Reviewed: 02/05/2016 [employer] Patient Education ?? 2019 [employer] [place]. Emergency Awareness and Preventative Care STROKE is an EMERGENCY Every Minute Counts Act FAST and Check for these signs: FACE Does the face look uneven? ARM Does one arm drift down? SPEECH Does their speech sound strange? TIME Call at any sign of stroke Stroke Risk Factors Atrial Fibrillation (irregular heartbeat) Diabetes Family history of stroke Heart Disease Heavy alcohol use High Blood Pressure High Cholesterol Physical inactivity and obesity Smoking Cigarette Smoking The facts are clear, cigarette smoking will shorten your life. Smoking can cause many illnesses along the way. As a healthcare provider, we recommend that you stop smoking. Assistance with quitting is available by contacting 0-486-KWBDWAFUNOW. This is a free resource providing counseling, support, and referral. Or you may contact your personal physician. National Suicide Prevention Lifeline: The National Suicide Prevention Lifeline is a national network of local crisis centers that provides free and confidential emotional support to people in suicidal crisis or emotional distress 24 hours a day, 7 days a week. Don't Wait! Stop a Heart Attack Before it Starts What is a heart attack? A heart attack is damage or to a part of the heart from severely decreased or lack of blood flow to the heart. Over time, arteries can become narrow from the buildup of fat and cholesterol, which is called plaque. The plaque can rupture causing a blood clot to form. When the blood clot forms, the artery can become severely narrowed or completely blocked, causing a heart attack. Heart attack is the leading cause of in the [place]. 85% of muscle damage occurs within the first 2 hours. Delay in the recognition of heart attack symptoms increases the chances of . Know the early symptoms of a heart attack: Nausea Feeling of fullness in chest Jaw Pain Pain that travels down one or both arms Fatigue/being tired Anxiety Back Pain Chest pressure, squeezing, or discomfort Shortness of breath Sweating, or a cold sweat Feeling of impending doom There are unusual signs of a heart attack, too! Women, the elderly, and diabetics may present with atypical symptoms: Fainting/dizziness Weakness Confusion Risk Factors for a Heart Attack Some heart disease risk factors, such as age and family history, cannot be changed. Others, like smoking and lack of exercise, can be changed. Smoking High Cholesterol High Blood Pressure Family History Obesity Age Gender (Males are at higher risk) Lack of Exercise Diabetes Diet Stress Excessive Alcohol Intake If you or someone you know is experiencing the signs and symptoms of a heart attack, DON???T DELAY. Call immediately and seek help. If someone collapses, perform CPR! Do not attempt to drive if you are having symptoms of heart attack. Hands-Only CPR Why Hands-Only CPR? Hands-Only CPR has been shown to be as effective as conventional CPR for cardiac arrests that occur outside of a hospital. Survival depends on immediately receiving CPR from someone nearby. How do you perform Hands-Only CPR? There are two easy steps: Call if you see a teen or adult collapse Push hard and fast in the center of the chest at a beat of 100 beats per minute. Save a life! 4 WAYS TO GET AHEAD OF SEPSIS SEPSIS is a MEDICAL EMERGENCY. Time matters! Infections put you and your family at risk for a life-threatening condition called sepsis. Sepsis is the body's extreme response to an infection. It is life-threatening, and without timely treatment, sepsis can rapidly lead to tissue damage, organ failure, and . Sepsis happens when an infection you already have-in your skin, lungs, urinary tract or somewhere else-triggers a chain reaction throughout your body. 1 PREVENT INFECTIONS Take good care of chronic conditions. Talk to your doctor about getting the recommended vaccines. 2 PRACTICE GOOD HYGIENE Wash your hands frequently. Keep cuts or open sores clean and covered until they are healed. 3 KNOW THE SYMPTOMS Confusion or disorientation Shortness of breath High heart rate Fever, shivering, or feeling very cold Extreme pain or discomfort Clammy or sweaty skin 4 ACT FAST Get medical care IMMEDIATELY if you suspect sepsis or if you have an infection that is not getting better or is getting worse. To learn more about sepsis and how to prevent infections, visit www.cdc.gov/sepsis. The examination and treatment you have received in the Emergency Department has been done to provide an appropriate evaluation and stabilizing treatment on an emergency basis only. Given the limited resources, it is not meant to be a substitute for complete medical care. The follow-up doctor you named will receive a copy of your records and all test reports. IT IS IMPORTANT THAT YOU SCHEDULE A FOLLOW-UP APPOINTMENT AND ARE RE-EVALUATED. You should report any new complaints, symptoms, or remaining problems at that time. IT IS IMPOSSIBLE FOR THE EMERGENCY DEPARTMENT TO RECOGNIZE AND TREAT ALL ELEMENTS OF INJURY OR ILLNESS IN A SINGLE VISIT. If you have been referred to a specialist physician, it means that we believe you may have a condition that requires the expertise of a specialist. These physicians work in partnership with the hospital and have agreed to see referred patients in their office for further evaluation. KEEP IN MIND THAT THE SPECIALIST HAS HIS/HER OWN OFFICE POLICIES WHICH MAY REQUIRE PROPER INSURANCE OR PAYMENT UP FRONT BEFORE THE SPECIALIST WILL SEE YOU. It is your responsibility to call the specialist physician to make an appointment. We do not have the ability to refer patients to specialists/physicians that work with specific insurance companies. Please be advised that all financial charges or billing practices are determined by that practice, not the hospital. If your insurance company requires that you see a specialist from their approved list, it is your responsibility to contact your insurance company to make those arrangements. It is also your responsibility to follow any other requirements of your insurance company necessary to obtain coverage for claims submitted. We will bill your insurance; however, you are responsible today for any co-pay amounts. You will receive a separate bill for any services you may have received including: emergency, radiology, or pathology physicians. Patient Name:TYRONE RYAN I have received this information and was given the opportunity to ask questions. Patient/Electric Lineman Name: Patient/Electric Lineman Signature: Relationship to Patient: Clinician/Hospital Electric Lineman Signature: Please Provide a Telephone Number Where You Can Be Reached: Is it Permissible To Leave a Message? Date: Electronically signed by Ashe[facility] Conversion Skidder Runner Satya at 03/10/2023 5:16 PM CDT documented in this encounter Plan of Treatment Not on file documented as of this encounter Visit Diagnoses Not on filedocumented in this encounter
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
== END 2025-06-01 23:59 | disposition home or self-care (01) ==
LOC: RAD 09:19
PROVIDERS: Visit Provider Physician Assistant
DX: M25.512 Pain in left shoulder (principal)
CPT/HCPCS: 73030

== ENCOUNTER 2025-06-10 06:57 | Outpatient (CLI) | payer OTHER, SELFPAY ==
--- OUTSIDE RECORDS SUMMARY | 2025-06-10 06:59 | XMS_ITS | Encounter Summary ---
Author Organization [employer] ([place], [place], [place], [place]) Address [address] [place] [address] Care Team Providers Care Finishing Area Operator Name Role Phone Unavailable Primary Care Provider Unavailabl e Encounter Details Date Type Department Care Team (Late st Contact Info) Description 06/24/2019 Transcribed Document [facility] Family Medicine [address] [place] [address] ProviderIman MD [address] [place] [address] Social History Tobacco Use Types [...] Crisostomo MD - 06/24/2019 12:[address] [facility] [place] [address] TYRONE RYAN :2005 Visit Time:06/23/2019 Your Visit Summary Your Care Team Admitting Physician - ELISEO ABDALLA MD PHY, UNKNOWN Attending Physician - ELISEO ABDALLA MD Primary Care Physician - ELIAS, UNKNOWN Referring Physician - ELISEO ABDALLA MD [...] 3 days Where: [place] [address]- Business (1) Follow Up with UNKNOWN PHY [...] injured area and eating a soft diet. Escg-maa-ebertoe medicines may also be recommended for pain [...] minutes, 2???3 times per day. ??? Take xxhw-mps-mttvlis and prescription medicines only as told by [...] 01/30/2005 Document Revised: 04/17/2017 Document Reviewed: 02/05/2016 [employer] Interactive Patient Education ?? 2019 isango!. Emergency Awareness and Preventative Care STROKE is [...] Assistance with quitting is available by contacting 9-960-FUGMNeighborMDNOW. This is a free resource providing counseling, [...] was given the opportunity to ask questions. Patient/Patent Drafter Name: Patient/Patent Drafter Signature: Relationship to Patient: Clinician/Hospital Patent Drafter Signature: Please Provide a Telephone Number Where You Can Be Reached: Is it Permissible To Leave a Message? Date: Electronically signed by Ashely [facility] Conversion Cartridge Assembler Satya at 03/10/2023 5:16 PM CDT documented in this encounter Plan of Treatment Not on file documented as of this encounter Visit Diagnoses Not on filedocumented in this encounter
--- OUTSIDE RECORDS SUMMARY | 2025-06-10 06:59 | XMS_ITS | Encounter Summary ---
Author Organization [employer] ([place], [place], [place], [place]) Address [address] [place] [address] Care Team Providers Care Pasteurizing Supervisor Name Role Phone Unavailable Primary Care Provider Unavailabl e Encounter Details Date Type Department Care Team (Late st Contact Info) Description 06/24/2019 Transcribed Document [facility] [place] Family Medicine [address] [place] [address] ProviderIman MD [address] [place] [address] Social History Tobacco Use Types [...] tubing this afternoon. Pt had xray at [facility], but pt stated the Medical [...] Medical/ Family/ Social History Surgical history: None ([id number]).. Family history: No family history items have [...] UNKNOWN PHY Within 2 to 3 days; [facility] (Find a Doc) Within 2 to 3 days. Counseled: Patient, Family, Regarding diagnosis, Regarding diagnostic results, Regarding treatment plan, Regarding prescription, Patient indicated understanding of instructions. documented in this encounter Plan of Treatment Not on file documented as of this encounter Visit Diagnoses Not on filedocumented in this encounter
--- OUTSIDE RECORDS SUMMARY | 2025-06-10 06:59 | XMS_ITS | Referral Summary ---
Author Organization [employer] ([place], [place], [place], [place]) Address [address] [place] [address] Care Team Providers Care Alcohol Still Operator Name Role Phone Unavailable Primary Care [...]
--- OUTSIDE RECORDS SUMMARY | 2025-06-10 06:59 | XMS_ITS | Encounter Summary ---
Author Organization [email or web address] ([place], [place], [place], [place]) Address [address] [place] [address] Care Team Providers Care Manager Science Name Role Phone Unavailable Primary Care Provider Unavailabl e Encounter Details Date Type Department Care Team (Late st Contact Info) Description 06/24/2019 Transcribed Document [facility] [place] [address] [place] [address] ProviderIman MD [facility] [place] [address] Social History Tobacco Use Types [...]
--- OUTSIDE RECORDS SUMMARY | 2025-06-10 06:59 | XMS_ITS | Clinical Summary ---
Author Organization [employer] ([place], [place], [place], [place]) Address [address] [place] [address] Care Team Providers Care Converting Technician Name Role Phone Unavailable Primary Care Provider [...]
--- OUTSIDE RECORDS SUMMARY | 2025-06-10 06:59 | XMS_ITS | Encounter Summary ---
Author Organization [employer] ([place], [place], [place], [place]) Address [address] [place] [address] Care Team Providers Care Healthcare Marketer Name Role Phone Unavailable Primary Care Provider Unavailabl e Encounter Details Date Type Department Care Team (Late st Contact Info) Description 06/23/2019 Transcribed Document [facility] [place] [facility] [place] [address] ProviderIman MD [facility] [place] [address] Social History Tobacco Use Types [...] tubing this afternoon. Pt had xray at [facility], but pt stated the Medical Center recommended CT scan. CRUZITO STOKES RN-CHARGE - 06/23/2019 22:59 EDT DCP GENERIC CODE Tracking Acuity : 3 - Urgent Tracking Group : [facility] ED CRUZITO STOKES RN-CHARGE - 06/23/2019 22:59 [...] Source : Stated Height Entry Format : [place] Height, Feet : 5 ft(Converted to: 152 cm, 60 Inch) Height, Inches : 6 Inch(Converted to: 0 ft 6 Inch, 15.24 cm) Clinical Height : 167.64 cm Weight Source : Standing scale Weight Entry Format : [place] Clinical Dosing Weight : 66.32 kg Weight, Pounds : 145.9 lb Body Surface Area (BSA) : 1.75 m2 Body Mass Index : 23.6 kg/m2 [place] Body Weight : 63 kg CRUZITO STOKES RN-CHARGE - 06/23/2019 22:59 EDT Diagnosis Control ED (As Of: 06/23/2019 23:02:38 EDT) Problems(Active) Asthma (SNOMED CT :995269859 ) Name of Problem: Asthma ; Recorder: CRUZITO STOKES RN-CHARGE; Confirmation: Confirmed ; Classification: Medical ; Code: [id number] ; Contributor System: [facility] ; Last Updated: 06/23/2019 23:02 EDT ; Life Cycle Date: 06/23/2019 ; Life Cycle Status: Active ; Vocabulary: SNOMED CT Diagnoses(Active) Jaw pain Date: 06/23/2019 ; Diagnosis Type: Reason For Visit ; Confirmation: Complaint of ; Clinical Dx: Jaw pain ; Classification: Medical ; Clinical Service: Emergency medicine ; Code: PNED ; Probability: 0 ; Diagnosis Code: [id number] Allergy (As Of: 06/23/2019 23:02:38 EDT) Allergies [...]
--- OUTSIDE RECORDS SUMMARY | 2025-06-10 06:59 | XMS_ITS | Clinical Summary ---
Author Organization [facility] Address [address] [place] [address] Care Team Providers Care Dining Room Attendant Cafeteria Name Role Phone Pcp, No Primary Care [...] therelease of HIV test results or diagnoses. [id number] Health Allergies Active Allergy Reactions Criticality Noted [...] this topic Insurance Lisa AGUILAR SYLVIE COHEN [id number] [facility] [place]: [facility] [id number] [place] [address] LIABILITY Member Subscriber Plan / Payer (Ef fective 2025-Present) Name:Fernando Ryan Relation to Subscriber:Self Name:Fernando Ryan Payer ID:[id number] Group ID:[id number] Type:Indemnity Address: [address] [address] [place] [address] Care Teams Dining Room Attendant Cafeteria Relationship Specialty Start Date End Date Pcp, No No Address PCP - General 02/06/25
--- OUTSIDE RECORDS SUMMARY | 2025-06-10 06:59 | XMS_ITS | Encounter Summary ---
Author Organization [employer] ([place], [place], [place], [place]) Address [address] [place] [address] Care Team Providers Care Juice Scaleman Name Role Phone Unavailable Primary Care Provider Unavailabl e Encounter Details Date Type Department Care Team (Late st Contact Info) Description 06/24/2019 Transcribed Document [facility] [place] [address] [place] [address] ProviderIman MD [address] [place] [address] Social History Tobacco Use Types [...] Historical ProviderMD - 06/24/2019 12:53 AM CDT Electronically signed by Ashely [facility] Conversion Chartered Accountant Cerner at 03/10/2023 5:44 PM CDT documented in this encounter Plan of Treatment Not on file documented as of this encounter Visit Diagnoses Not on filedocumented in this encounter
--- OUTSIDE RECORDS SUMMARY | 2025-06-10 06:59 | XMS_ITS | Encounter Summary ---
Author Organization [employer] ([place], [place], [place], [place]) Address [address] [place] [address] Care Team Providers Care Sports Recruiter Name Role Phone Unavailable Primary Care Provider Unavailabl e Encounter Details Date Type Department Care Team (Late st Contact Info) Description 06/23/2019 Transcribed Document [facility] [place] Family Medicine [address] [place] [address] ProviderIman MD [address] [place] [address] Social History Tobacco Use Types [...] Communication Barrier : None Primary Language : Malagasy Any Spiritual/Cultural Needs or Requests : No [...]
--- NOTE | 2025-06-10 07:00 | MR_ITS ---
FINAL REPORT TECHNIQUE: Multiplanar MR without contrast CLINICAL HISTORY: left shoulder pain. limited rom FINDINGS: Marrow signal: Unremarkable Glenohumeral joint: Physiologic effusion. No significant degenerative changes. AC joint: No obvious impingement. No significant hypertrophic changes. Rotator cuff: No evidence of tear Labrum: Questionable tear of the posterior labrum with images 12 through 14 of the proton-density sequences however motion artifact could account for the signal change in the posterior labral base. Superior and anterior labrum are normal. Biceps tendon: Intra-articular long head biceps tendon intact. No MRI changes of adhesive capsulitis. IMPRESSION: Questionable small posterior labral tear. This can be confirmed with MR arthrography. Reviewed, Interpreted and Dictated by Ramya Galaviz MD Transcribed by Jessica Sharma Authenticated and [facility]
== END 2025-06-10 23:59 | disposition home or self-care (01) ==
LOC: RAD 06:57
PROVIDERS: PCP Internal Medicine Adolescent Medicine; Visit Provider Physician Assistant
DX: S43.005A Unspecified dislocation of left shoulder joint, initial encounter (principal); X58.XXXA Exposure to other specified factors, initial encounter; M25.512 Pain in left shoulder
CPT/HCPCS: 73221